=== PATIENT | female | born 1945 | race Caucasian/White ===

== ENCOUNTER 2017-01-26 02:55 | Emergency (ER) | payer MEDICARE, MEDICAID ==
[2017-01-26] MEDS ORDERED: ASPIRIN 81 MG CHEWABLE CTB PO STA (03:04)
[2017-01-26] MEDS ORDERED: NITROGLYCERIN 0.4 MG TAB SL PRN (03:04)
[2017-01-26] MEDS ORDERED: SODIUM CHLORIDE 0.9% FLUSH 10 ML SOL IV PRN (03:04)
[2017-01-26 03:13] LABS: BASOPHILS % (AUTO) 1 % (0-3); EOSINOPHILS % (AUTO) 3 % (0-9); HEMATOCRIT 29 % (35-47); MEAN CORPUSCULAR HGB CONC 32.7 gm/dl (32.0-36.0)
[2017-01-26 03:29] LABS: ALBUMIN 2.9 gm/dl (3.4-5.0); ALT 13 IU/L (14-63); GLOM FILT RATE 64 mL/min (>60); POTASSIUM 3.4 mMol/L (3.5-5.1); SODIUM 139 mMol/L (136-145)
[2017-01-26 03:37] LABS: CALCIUM 9.1 mg/dl (8.5-10.1)
[2017-01-26 03:44] LABS: ANISOCYTOSIS MOD AMT; HYPOCHROMASIA SLIGHT; MEAN CORPUSCULAR VOLUME 68 fL (81-99)
[2017-01-26 03:45] LABS: OVALOCYTES PRESENT
[2017-01-26 04:52] VITALS: TEMP 97.8
[2017-01-26 06:17] VITALS: BP 122/64; PULSE 68; RESP 17; O2SAT 96
== END 2017-01-26 08:10 | DRG 313 ==
LOC: ED 02:55
DX: R07.89 Other chest pain (principal)
CPT/HCPCS: 36415; 71010; 71275; 80053; 82150; 82550; 84484; 85025; 85378; 85610; 85730; 93005; 99284; 99285; Q9967

== ENCOUNTER 2018-02-09 09:57 | Emergency (ER) | payer MEDICARE, MEDICAID ==
[2018-02-09] MEDS ORDERED: MORPHINE SULFATE 10 MG/ML SOL IV ONE ×2 (10:08→11:01)
[2018-02-09] MEDS ORDERED: MORPHINE SULFATE 10 MG/ML SOL ONE ×2 (10:10→10:56)
[2018-02-09] MEDS ORDERED: SODIUM CHLORIDE 0.9% FLUSH 10 ML SOL IV PRN (10:17)
[2018-02-09 10:26] VITALS: TEMP 97.7
[2018-02-09 12:42] VITALS: BP 113/78; PULSE 78; RESP 17; O2SAT 93
== END 2018-02-09 12:58 | DRG 313 ==
LOC: ED 09:57
DX: R07.9 Chest pain, unspecified (principal)
CPT/HCPCS: 36415; 71045; 74160; 80048; 82550; 83880; 84484; 85025; 85610; 85730; 93005; 99285; J2270; Q9967

== ENCOUNTER → 2018-02-09 | Day surgery (SDC) | payer MEDICARE, MEDICAID ==
[~2018-02-09] MED LIST: FENTANYL 100MCG/2ML SOL ONE; LIDOCAINE HCL 1% MPF SOL ONE; ONDANSETRON HCL 4 MG/2 ML SOL ONE; PROPOFOL 500 MG/50 ML EMU IV ONE
[2018-02-09 09:18] VITALS: TEMP 97.3
[2018-02-09 09:40] VITALS: RESP 14
[2018-02-09 09:49] VITALS: BP 120/55; PULSE 59; O2SAT 99
[2018-02-09 10:21] LABS: BASOPHILS % (AUTO) 1 % (0-3); EOSINOPHILS % (AUTO) 7 % (0-9); HEMATOCRIT 38 % (35-47); HEMOGLOBIN 12.6 gm/dl (12.0-15.5); LYMPHOCYTES % (AUTO) 31.2 % (10-50); MEAN CORPUSCULAR HEMOGLOBIN 28.2 pg (27.0-32.0); MEAN CORPUSCULAR HGB CONC 33.3 gm/dl (32.0-36.0); MEAN CORPUSCULAR VOLUME 85 fL (81-99); MONOCYTES % (AUTO) 6.5 % (0-12); NEUTROPHILS % (AUTO) 54.8 % (37-80)
[2018-02-09 10:39] LABS: CALCIUM 8.3 mg/dl (8.5-10.1); CARBON DIOXIDE 24.5 mEq/L (21-32); CREATININE 0.86 mg/dl (0.60-1.00); POTASSIUM 4.3 mMol/L (3.5-5.1); TROP I 0.021 ng/ml (0.000-0.056)
== END | disposition home or self-care (01) | DRG 392 ==
LOC: SURG 07:54
PROVIDERS: ATTEND Internal Medicine Gastroenterology
DX: R10.13 Epigastric pain (principal); K22.2 Esophageal obstruction; R13.10 Dysphagia, unspecified; R07.9 Chest pain, unspecified; K44.9 Diaphragmatic hernia without obstruction or gangrene; K29.60 Other gastritis without bleeding
CPT/HCPCS: 36415; 71045; 74160; 80048; 82550; 83880; 84484; 85025; 85610; 85730; 93005; 99285; J2270; J2405; J3010; Q9967; J2001; J2704

== ENCOUNTER 2018-03-30 08:26 | Day surgery (SDC) | payer MEDICARE, MEDICAID ==
[~2018-03-30 08:26] MED LIST changes: -FENTANYL 100MCG/2ML SOL ONE; +LIDOCAINE HCL 1% MPF 30 SOL ONE; -LIDOCAINE HCL 1% MPF SOL ONE; -ONDANSETRON HCL 4 MG/2 ML SOL ONE
[2018-03-30 10:37] VITALS: TEMP 98
[2018-03-30 11:04] VITALS: BP 132/74; PULSE 61; RESP 20; O2SAT 92
== END 2018-03-30 11:17 | disposition home or self-care (01) | DRG 153 ==
LOC: SURG 08:26
PROVIDERS: ATTEND Internal Medicine Gastroenterology
DX: J11.1 Influenza due to unidentified influenza virus with other respiratory manifestations (principal); K22.2 Esophageal obstruction; R13.10 Dysphagia, unspecified; K21.9 Gastro-esophageal reflux disease without esophagitis; K44.9 Diaphragmatic hernia without obstruction or gangrene; K29.70 Gastritis, unspecified, without bleeding; Q40.2 Other specified congenital malformations of stomach
CPT/HCPCS: J2001; J2704

== ENCOUNTER 2019-05-05 16:28 | Emergency (ER) | payer MEDICARE, MEDICAID ==
[2019-05-05 16:44] VITALS: RESP 18; TEMP 97.8
[2019-05-05 17:22] VITALS: BP 136/78; PULSE 61; O2SAT 94
== END 2019-05-05 18:30 | DRG 556 ==
LOC: ED 16:28
DX: M79.18 Myalgia, other site (principal)
CPT/HCPCS: 99282; 99283